=== PATIENT | female | born 1985 | race African-American/Black ===

== ENCOUNTER 2023-06-08 01:46 | Emergency (ER) | payer OTHER ==
[2023-06-08 01:53] VITALS: TEMP 98.8; BMI 20.7
[2023-06-08] MEDS ORDERED: IBUPROFEN 600 MG TABLET (FP) PO ONE ×2 (02:55→03:07)
[2023-06-08] MEDS ORDERED: SODIUM CHLORIDE 0.9% 500 ML INFUS.BAG IV ONE (03:18)
[2023-06-08 03:19] LABS: BASO % 0.2 % (0-2.0); EOS % 0.6 % (0-4.5); HEMATOCRIT 32.8 % (32.4-45.2); HEMOGLOBIN 11.3 GM/dL (10.7-15.3); LYMPH % 7.6 % (8-40); MCH 27.7 pg (25.7-33.7); MCHC 34.3 g/dl (32.0-36.0); MEAN CELL VOLUME 80.7 fl (80-96); MEAN PLT VOLUME 8.3 fl (7.5-11.1); MONO % 6.4 % (3.8-10.2); NEUT % 85.2 % (42.8-82.8); PLATELET COUNT 239 10^3/uL (134-434); RBC 4.06 M/mm3 (3.60-5.2); RDW 15.8 % (11.6-15.6); WHITE BLOOD COUNT 9.1 K/mm3 (4.0-10.0)
[2023-06-08 03:44] LABS: POTASSIUM 3.7 mmol/L (3.5-5.1)
[2023-06-08 03:45] LABS: CALCIUM 8.8 mg/dL (8.5-10.1)
[2023-06-08 03:46] LABS: ALBUMIN 3.4 g/dl (3.4-5.0); BLOOD UREA NITROGEN 10.1 mg/dL (7-18)
[2023-06-08 03:49] LABS: CREATININE 0.9 mg/dL (0.55-1.3)
[2023-06-08 03:50] LABS: TOT PROT 7.4 g/dl (6.4-8.2)
[2023-06-08 03:51] LABS: BILIRUBIN,TOTAL 0.4 mg/dL (0.2-1)
[2023-06-08 04:25] LABS: PH,URINE 8.5 (5.0-8.0); URINE APPEARANCE CLEAR; URINE BILIRUBIN NEGATIVE (NEGATIVE); URINE COLOR YELLOW; URINE GLUCOSE (UA) NEGATIVE (NEGATIVE); URINE KETONE NEGATIVE (NEGATIVE); URINE LEUK ESTERASE NEGATIVE (NEGATIVE); URINE NITRITE NEGATIVE (NEGATIVE); URINE PROTEIN NEGATIVE (NEGATIVE); URINE UROBILINOGEN 0.2 mg/dL (0.2-1.0)
[2023-06-08 05:00] LABS: HCG,QUALITATIVE URINE Negative
[2023-06-08 05:30] VITALS: BP 110/78; PULSE 76; RESP 18
== END 2023-06-08 05:30 | disposition home or self-care (01) ==
LOC: JER 01:46
DX: R42 Dizziness and giddiness (principal); B34.9 Viral infection, unspecified; Z20.822 Contact with and (suspected) exposure to COVID-19
CPT/HCPCS: 0241U-QW; 36415; 71046-TC-FY; 80053; 81003; 84703; 85025; 87651; 93005; 93010; 99285-25